=== PATIENT | male | born 1955 | race Caucasian/White ===

== ENCOUNTER 2020-10-23 18:45 | Inpatient (IN) | payer BC, SELFPAY ==
[2020-10-23 20:41] VITALS: BMI 39.0
[2020-10-23 20:47] VITALS: BP 127/73; PULSE 98; RESP 18; TEMP 37.2; O2SAT 94
[2020-10-24] VITALS (21 sets, daily range): BP systolic 127–169; BP diastolic 76–100; PULSE 76–104; RESP 13–20; TEMP 36.2–37.2; O2SAT 94–100
--- NOTE | 2020-10-24 | XR_ITS ---
WS: [id number] C-ARM RADIOGRAPHS RIGHT HIP; 4 IMAGES HISTORY: OR PICS COMPARISON: 10/19/2020 Nail and plate fixation of the RIGHT intertrochanteric fracture. Fracture in good position alignment. XR/XR hip RT 2-3V wo/w pel* [id number] IMPRESSION: Status post ORIF intertrochanteric hip fracture in good alignment.
--- NOTE | 2020-10-24 | SCC_ITS ---
Procedure Done: ORIF Right hip IT fracture 66 seconds of fluoroscopic guidance, for a cumulative dose of 22.95 mGy, was provided to Dr. Rasmussen by the radiology department. C-arm images of the RIGHT hip were saved for the patient's permanent record. [facility]
--- NOTE | 2020-10-24 00:18 | P.HP_ITS ---
Providers/Chief Complaint Admitting Physician: Vishnu Rasmussen DO Chief Complaint: Hip Fracture History of Present Illness Griffin Angel is a 65 year old male with history of moderate aortic stenosis, diabetes, GERD presented to [facility] on Tuesday after falling on ice while he was getting in his tractor. He was admitted at [place] for management of right intertrochanteric hip fracture. Because of unsuitable surgical suite he could not get surgical intervention hence got transferred to our facility. Dr. Rasmussen has accepted the transfer. He was evaluated by cardiology and was cleared for the surgery, his echo revealed preserved ejection fraction, has moderate aortic stenosis, asymptomatic. Normal CBC, BMP, unremarkable EKG, hip x-ray reveals right intertrochanteric hip fracture, unremarkable chest x-ray, Covid antigen negative At the time of my evaluation patient was lying comfortably in his bed, normal hemodynamics he was saturating well on room air, he was complaining of right- sided hip pain for which he was given Dilaudid Denying chest pain, orthopnea, shortness of breath, nausea, vomiting or diarrhea. Review of Systems Const: Denies: fever(s) or chills Eyes: Denies: change in vision ENMT: Denies: throat pain Card: Denies: chest pain Resp: Denies: dyspnea GI: Denies: abdominal pain : Denies: flank pain Musc: Reports: extremity pain, joint pain and limited range of motion Skin/Breast: Denies: lesions Neuro: Denies: headache(s) Psych: Denies: anxiety Endo: Denies: polyuria Eliu/Lymph: Denies: easy bruising All/Imm: Denies: urticaria Medications/Allergies Home Medications Medication Instructions Recorded Confirmed Last Taken Type dulaglutide [Trulicity] See Rx Instructions .ROUTE .COMPLEX 10/23/20 10/23/20 Unknown History empagliflozin [Jardiance] 25 mg PO DAILY 10/23/20 10/23/20 Unknown History glyburide 10 mg PO BID 10/23/20 10/23/20 Unknown History lisinopril 5 mg PO DAILY 10/23/20 10/23/20 Unknown History meloxicam 15 mg PO DAILY 10/23/20 10/23/20 Unknown History metformin 500 mg PO BID 10/23/20 10/23/20 Unknown History pantoprazole 40 mg PO DAILY 10/23/20 10/23/20 Unknown History Allergies Allergy/AdvReac Type Severity Reaction Status Date / Time No Known Allergies Allergy Verified 10/23/20 22:48 PFSH Acute PFSH: Medical History (Updated 10/24/20 @ 01:46 by Tay Leal MD) Diabetes Moderate aortic stenosis Right femoral fracture Surgical History (Updated 10/24/20 @ 01:46 by Tay Leal MD) History of open reduction and internal fixation (ORIF) procedure Family History (Updated 10/24/20 @ 01:47 by Tay Leal MD) Denies family history of CAD (coronary artery disease) Lung disease Cancer Hypertension Social History (Updated 10/24/20 @ 01:47 by Tay Leal MD) Smoking and tobacco status: never smoked Alcohol intake: never Substance/Drug Use: never Household members: spouse Housing: House Vitals/I&O/Wt Last Vital Signs Temp 98.9 F 10/23/20 20:47 Pulse 98 10/23/20 20:47 Resp 18 10/23/20 20:47 BP 127/73 10/23/20 20:47 Pulse Ox 94 10/23/20 20:47 10/23/20 10/23/20 10/24/20 14:59 22:59 06:59 Output Total 750 / 750 Balance -750 / -750 Weight last 48 hrs Weight 116.573 kg Physical Exam Narrative: EXAM NARRATIVE: Middle-age male currently laying comfortably in his bed normal hemodynamics, appears stated age S1, S2 aortic stenosis murmur grade 2/6 right second intercostal space radiating towards his neck Abdomen distended central obesity nontender Bilateral breath sounds without adventitious rhonchi or crackles no acute respite distress Awake alert oriented x3 GCS 15 No acute signs of gangrene ischemia or ulcer of lower extremities No neurological deficit Limited range of motion of right leg pain appropriate mood and affect A&P Assessment and plan (1) Closed right hip fracture: Right intertrochanteric hip fracture after sustaining a fall on ice She of moderate aortic stenosis RCRI class I risk, has been evaluated by cardiology at [place] who cleared him for the surgery, patient is asymptomatic for his moderate aortic stenosis, Dr. Rasmussen consulted who accepted this patient I will continue him on maintenance fluid along low-dose sliding scale N.p.o. 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 DVT prophylaxis: SCDs Full code Attestations Medical Necessity Statement*: Anticipating stay in the hospital cross more than 2 midnights currently need surgical intervention for right hip fracture Time Spent in Patient Care: (>than 50% of time spent in counselling and/or direct pt care on unit) . 35 minutes Coding Level of Care Code Acute Ginseng Farmer for Nereydag Fwd Diagnoses Closed right hip fracture S72.001A
[2020-10-24] MEDS: dextrose 5%-sod chloride 0.45% 1,000 ML 30 ML IV (00:55)
[2020-10-24] MEDS: HYDROmorphone 1 mg/mL INJ 1 mL 0.4 MG IVP (01:00)
[2020-10-24 06:10] LABS: Basophils # 0.1 10^3/uL (0.0-0.1); Basophils % 0.5 %; Eosinophils # 0.3 10^3/uL (0.0-0.8); Eosinophils % 3.2 %; Hemoglobin 13.3 g/dL (11.7-16.6); Lymphocytes % 30.3 %; Mean Corpuscular HGB Conc 30.9 g/dL (30.0-36.0); Mean Corpuscular Hemoglobin 24.6 pg (28.0-34.0); Mean Corpuscular Volume 79.5 fL (80-94); Monocytes # 1.2 10^3/uL (0.2-0.9); Monocytes % 11.9 %; Neutrophils # 5.26 10^3/uL (1.8-7.7); Neutrophils % 53.7 %; Nucleated Red Blood Cells % 0 %; Platelet Count 172 10^3/cmm (130-400); Red Blood Count 5.41 10^6/uL (4.1-5.3); Red Cell Distribution Width 15.5 % (12.1-15.1); White Blood Count 9.8 10^3/uL (4.0-10.0)
[2020-10-24 06:41] LABS: Anion Gap 11.1 (5-19); Blood Urea Nitrogen 18 mg/dL (8-23); Calcium 9.1 mg/dL (8.5-10.5); Carbon Dioxide 27 mmol/L (22-29); Chloride 103 mmol/L (98-107); Glomerular Filtration Rate 97.3 mL/min (90-130); Glucose 145 mg/dL (65-115); Osmolality Calculated 288 mOsm/kg (285-295); Potassium 4.1 mmol/L (3.5-5.1); Sodium 137 mmol/L (136-145)
--- NOTE | 2020-10-24 06:45 | PC.NURSE ---
Patient to surgery at this time.
--- NOTE | 2020-10-24 07:00 | ECG_ITS ---
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 Measurements Intervals [place] Rate: 88 P: -9 MO: 131 QRS: 42 QRSD: 101 T: 9 QT: 358 QTc: 434 Interpretive Statements SINUS RHYTHM NONSPECIFIC T-WAVE ABNORMALITY No previous ECG available for comparison Electronically Signed On 10-24-2020 16:14:25 MAMMA LOGIST by Demetris Herman M.D. [id number]
--- NOTE | 2020-10-24 07:04 | P.CONIM_ITS ---
Providers/Reason For Consult Consulting Physican/Specialty*: orthopedic Reason for Consult*: hip fracture Attending Physician: Vishnu Rasmussen DO History of Present Illness History of Present Illness Griffin Angel is a 65 year old male with history of moderate aortic stenosis, diabetes, GERD presented to [facility] on Tuesday after falling on ice while he was getting in his tractor. He was admitted at [place] for management of right intertrochanteric hip fracture. Because of unsuitable surgical suite he could not get surgical intervention hence got transferred to our facility. Dr. Rasmussen has accepted the transfer. He was evaluated by cardiology and was cleared for the surgery, his echo revealed preserved ejection fraction, has moderate aortic stenosis, asymptomatic. Normal CBC, BMP, unremarkable EKG, hip x-ray reveals right intertrochanteric hip fracture, unremarkable chest x-ray, Covid antigen negative Review of Systems Const: Denies: fever(s) or chills Eyes: Denies: change in vision ENMT: Denies: throat pain Card: Denies: chest pain Resp: Denies: dyspnea GI: Denies: abdominal pain : Denies: flank pain Musc: Reports: extremity pain, joint pain and limited range of motion Skin/Breast: Denies: lesions Neuro: Denies: headache(s) Psych: Denies: anxiety Endo: Denies: polyuria Eliu/Lymph: Denies: easy bruising All/Imm: Denies: urticaria Meds/Allergies Home Medications and Allergies Home Medications Medication Instructions Recorded Confirmed Last Taken Type dulaglutide [Trulicity] See Rx Instructions .ROUTE .COMPLEX 10/23/20 10/23/20 Unknown History empagliflozin [Jardiance] 25 mg PO DAILY 10/23/20 10/23/20 Unknown History glyburide 10 mg PO BID 10/23/20 10/23/20 Unknown History lisinopril 5 mg PO DAILY 10/23/20 10/23/20 Unknown History meloxicam 15 mg PO DAILY 10/23/20 10/23/20 Unknown History metformin 500 mg PO BID 10/23/20 10/23/20 Unknown History pantoprazole 40 mg PO DAILY 10/23/20 10/23/20 Unknown History Allergies Allergy/AdvReac Type Severity Reaction Status Date / Time No Known Allergies Allergy Verified 10/23/20 22:48 Current Medications Current Medications Generic Name Dose Route Start Last Admin Trade Name Freq PRN Reason Stop Dose Admin Hydromorphone HCl 0.4 mg 10/24/20 00:18 10/24/20 01:00 Hydromorphone 1 Mg/Ml Inj 1 Ml IVP 0.4 mg Q4H PRN Administration pain Dextrose/Sodium Chloride 1,000 mls @ 30 mls/hr 10/24/20 00:30 10/24/20 00:55 Dextrose 5%-Sod Chloride 0.45% IV 30 mls/hr .Q24H INDU Administration PFSH Acute PFSH: Medical History (Updated 10/24/20 @ 01:46 by Tay Leal MD) Diabetes Moderate aortic stenosis Right femoral fracture Surgical History (Updated 10/24/20 @ 01:46 by Tay Leal MD) History of open reduction and internal fixation (ORIF) procedure Family History (Updated 10/24/20 @ 01:47 by Tay Leal MD) Denies family history of CAD (coronary artery disease) Lung disease Cancer Hypertension Social History (Updated 10/24/20 @ 01:47 by Tay Leal MD) Smoking and tobacco status: never smoked Alcohol intake: never Substance/Drug Use: never Household members: spouse Housing: House Vitals/I&O/Wt Last Vital Signs Temp 97.2 F L 10/24/20 06:49 Pulse 90 10/24/20 06:49 Resp 18 10/24/20 06:49 BP 127/76 10/24/20 06:49 Pulse Ox 96 10/24/20 06:49 10/23/20 10/24/20 10/24/20 22:59 06:59 14:59 Output Total 750 / 750 650 / 1400 Balance -750 / -750 -650 / -1400 Weight last 48 hrs Weight 257 lb Physical Exam Narrative: EXAM NARRATIVE: CONSTITUTIONAL: The patient is a normal appearing [] in no apparent distress. GENERAL: Patient in no acute distress. CARDIAC: Regular rate and rhythm. CHEST: Normal inspiratory effort, normal respiratory rate. ABDOMEN: Soft and nontender. SKIN: Clear, warm and intact. NEURO?PSYCH: The patient is alert and oriented to person, place and time. Sensorv /SILT Motor StrengthShoulder abduction C5 5/5Wrist extension C6 5/5Elbow extension C7 5/5Hand Metal Room Dental Technician C8 5/5Finger abduction T15/5 Radial/ Ulnar/ Median n intact LowerSensory (SILT)Motor StrengthHin flexion L2/3Ant/inner thigh 5/5Hip adduction L2/3 5/5Knee extension L4 Lat thigh, 5/5Toe dorsiflexion L5 5/5Ankle dorsiflexion L5/ I52Adthqij flexion S1 5/5 DTRBleeps 2+Triceps 2+Brachioradialis 2+Patellar 2+Achilles 2+ MUSCULOSKELETAL: [] UPPEREXTREMITIES: The patient had full active ROM in fingers, wrist, elbow, and shoulder. The patient demonstrated ability to fully flex/extend/abduct/a dduct fingers, make ok sign, cross 2nd/3rd digits, extend 1st digit fully.. Radial pulse 2+, CR<2 seconds. LOWER EXTREMITIES: Pt has full, active ROM of toes, ankle, knee, and hip. Dorsalis pedis/posterior tibialis pulses 2+, CR<2 seconds. SPINE: Skin warm, dry, intact A&P Additional A&P Information right hip fracture IT ORIF R hip Coding Level of Care Code Acute Business Transformation Manager for Wale Shankar
--- NOTE | 2020-10-24 07:06 | W.PM.OPSUD ---
Surgery/Procedure H&P Update DATE OF PROCEDURE: October 24, 2020 DATE H&P PERFORMED: 10/24/20 H&P UPDATE INFORMATION: I have reviewed H&P completed within last 30 days PLANNED PROCEDURE: Operation Date: 10/24/20 08:00 Proposed Procedures p ORIF Femur(Right) - Vishnu Rasmussen DO
--- NOTE | 2020-10-24 07:24 | ANES.PREANE2 ---
Pre-Anesthetic Assessment Pre-Anesthetic Assessment: Height/Weight: Height 1.73 m Weight 116.573 kg Temp Pulse Resp BP Pulse Ox 97.2 F L 90 18 127/76 96 10/24/20 06:49 10/24/20 06:49 10/24/20 06:49 10/24/20 06:49 10/24/20 06:49 Preop Diagnosis: right IT fx Proposed Procedure: Operation Date: 10/24/20 08:00 Proposed Procedures p ORIF Femur(Right) - Vishnu Rasmussen DO Familial anesthetic complications: None Was Beta Carlos taken within 24 hours: N/A Last intake: NPO > 8 hrs Social: Social History: No alcohol and No tobacco Exam: Pre-Anes Outpt Exam: alert, oriented x 3, clear to auscultation bilaterally and regular rate & rhythm Airway: Cervical ROM: WNL MP: 3 Dentition: Chipped and Other ( I have bad teeth ) CV/HEM: CV/HEM: HTN Comments: mod Aortic Stenosis, seen and cleared by cardiology at [place] for the surgery- still very active, no symptoms GI: GI: GERD Metabolic: Metabolic: DM Anesthetic Plan: ASA status: 3 Anesthesia: General Risk of > 500 ml blood loss (7ml/kg in children): No Meds/Allergies Current Medications: Current Medications Generic Name Dose Route Start Last Admin Trade Name Freq PRN Reason Stop Dose Admin Hydromorphone HCl 0.4 mg 10/24/20 00:18 10/24/20 01:00 Hydromorphone 1 Mg/Ml Inj 1 Ml IVP 0.4 mg Q4H PRN Administration pain Dextrose/Sodium Ch loride 1,000 mls @ 30 ml s/hr 10/24/20 00:30 10/24/20 00:55 Dextrose 5%-Sod Chloride 0.45% IV 30 mls/hr .Q24H INDU Administration PFSH Anesthesia PFSH: Medical History (Updated 10/24/20 @ 01:46 by Tay Leal MD) Diabetes Moderate aortic stenosis Right femoral fracture Surgical History (Updated 10/24/20 @ 01:46 by Tay Leal MD) History of open reduction and internal fixation (ORIF) procedure Family History (Updated 10/24/20 @ 01:47 by Tay Leal MD) Denies family history of CAD (coronary artery disease) Lung disease Cancer Hypertension Social History (Updated 10/24/20 @ 01:47 by Tay Leal MD) Smoking and tobacco status: never smoked Alcohol intake: never Substance/Drug Use: never Household members: spouse Housing: House Data Anesthesia CBC & Chem 7: 10/24/20 05:55 10/24/20 05:55 Other Labs: Laboratory Results - last 48 hr 10/24/20 10/24/20 05:55 05:55 WBC 9.8 RBC 5.41 H Hgb 13.3 Hct 43.0 MCV 79.5 L MCH 24.6 L MCHC 30.9 RDW 15.5 H Plt Count 172 MPV 11.0 H Neut % (Auto) 53.7 Lymph % (Auto) 30.3 Hendricks % (Auto) 11.9 Eos % (Auto) 3.2 Baso % (Auto) 0.5 Neut # (Auto) 5.26 Lymph # (Auto) 3.0 Hendricks # (Auto) 1.2 H Eos # (Auto) 0.3 Baso # (Auto) 0.1 Nucleated RBC % (auto) 0 Nucleated RBCs # 0.0 Sodium 137 Potassium 4.1 Chloride 103 Carbon Dioxide 27 Anion Gap 11.1 BUN 18 Creatinine 0.8 GFR Calculation 97.3 Glucose 145 H Calculated Osmolality 288 Calcium 9.1 Cardiac Studies: No Data to Display
[2020-10-24] MEDS: sodium chloride 0.9% 1,000 ML 30 ML IV (07:51)
--- NOTE | 2020-10-24 10:00 | PM.OP ---
Operative Report Date of procedure: October 24, 2020 Pre-op Diagnosis: right IT fx Post-op diagnosis: same Procedure Done: ORIF Right hip IT fracture Surgeon: Vishnu Rasmussen Anesthesia: General Estimated blood loss (mL): 50 Condition: stable Disposition: PACU Procedure: ORIF Right Hip Fracture Brought to the operative suite after undergoing anesthesia was placed on the fracture table traction was applied and internal rotation. All area of impingement were well padded patient was then prepped and draped normal sterile fashion. Skin incision was made over the fracture. IT band split vastus lateralis is elevated up anteriorly. Retractors were placed. A guidewire was placed through the jig. Once the wire was placed in the center center position in the femoral head attention was then brought to drilling the leg screw hole was drilled. Then the lag screw was inserted with a 3 hole plate. Plate was then tamped into position. And then 3 screws were placed distal to the lag screw through the plate avoiding the nail that was already in the femur from a previous surgery. AP lateral fluoroscopy ensured the fracture and hardware in appropriate positions. Wounds were irrigated and closed with Vicryl and karlo. Sterile dressings were applied and patient was transferred to the PACU in stable condition.
[2020-10-24] MEDS: fentaNYL 50 mcg/mL INJ 2mL IVP (10:18)
--- NOTE | 2020-10-24 10:26 | SUR.PHASEI ---
PT TO PACU SLEEPY WITH GOOD RESP EFFORT, PT MOANS AND RESTLESS, SAYS (UH HUH) TO PAIN QUESTIONS, , FIRST ICE TO RT HIP DRESSING D/I DISTAL FOOT PINK WARM PULSE MARDED RT SCD PLACED AND WORKING 1018 SEE PAIN MED GIVEN FOR PAIN AFTER PT REPOSITIONED SELF TO LT SIDE PILLOWS BETWEEN KNEES FOR COMFORT.
[2020-10-24] MEDS: HYDROcodone-acetaminophen 5-325 mg Tablet PO ×2 (11:46→22:08)
[2020-10-24] MEDS: lisinopril 5 mg Tablet PO (11:46)
--- NOTE | 2020-10-24 12:11 | PM.PN ---
Subjective Subjective: Interval history: Griffin reports he is in some discomfort after the hip surgery. Medications: Reviewed: Yes Vitals/I&O/Wt Last Vital Signs Temp 98.7 F 10/24/20 11:49 Pulse 91 10/24/20 11:49 Resp 18 10/24/20 11:49 BP 163/96 10/24/20 11:49 Pulse Ox 94 10/24/20 11:49 10/23/20 10/24/20 10/24/20 22:59 06:59 14:59 Intake Total 50 / 50 Output Total 750 / 750 650 / 1400 250 / 250 Balance -750 / -750 -650 / -1400 -200 / -200 Weight last 48 hrs Weight 116.573 kg Physical Exam Narrative: EXAM NARRATIVE: General exam is no apparent distress Cardiovascular regular rate and rhythm without murmur Lungs clear Abdomen is soft, positive bowel sounds Extremities no cyanosis clubbing or edema, dressing noted right hip Data : 10/24/20 05:55 10/24/20 05:55 A&P Assessment and plan (1) Closed right hip fracture: Directly postoperative, doing well Pain control Status: Acute Additional A&P Information Moderate aortic stenosis, asymptomatic. Can follow-up with his primary and cardiology on discharge Type 2 diabetes. Sliding scale insulin Hypertension, continue home medicines History of GERD, continue Protonix Lovenox for DVT prophylaxis Full code Attestations Medical Necessity Statement*: Needs continued hospitalization following hip fracture repair for close monitoring. Coding Level of Care Code Acute Paint Factory Worker for Nereydag Fwd Diagnoses Closed right hip fracture S72.001A
--- NOTE | 2020-10-24 12:52 | ANE.PACU2 ---
Inpatient post-anesthesia follow up: Airway intact: Yes Vital signs: Temperature 98.4 F Pulse Rate 89 Respiratory Rate 18 Blood Pressure 168/98 Pulse Oximetry 98 Oxygen Delivery Me thod Nasal Cannula Oxygen Flow Rate 2 Fraction of Inspir ed Oxygen Hydration adequate: Yes Nausea and vomiting: No Pain level: 1 Mental status: Baseline
--- NOTE | 2020-10-24 13:53 | PC.CHAP ---
Pastoral Care Encounter/Spiritual Assessment Type of Contact [] Declined physician assistant surgery visit [] Patient/Family/Request visit [] Outpatient visit [] Follow-up visit [] Physician referral [] Code/Alert [] Routine visit [] Staff referral [] Actively dying [] Patient sleeping [] Family support [] [] Out of room [] Palliative care [] [] Receiving care in room [] Pre-surgical visit [] Trauma [] Long length of stay [] ICU visit [] Other: Relational/Emotional Strength [] Patient feels connected with others/family/visitors/staff [] Distress [] Loneliness/isolation [] Abandonment Spirituality of Patient [] Person of Yuridia [] Attends Confucianism of their Yuridia [] Believes in Prayer [] Reads Bible or Congregational materials [] There are Spiritual issues to be addressed Packager Hand Interventions [] Prayer [] Active listening [] Non-anxious presence [] Spiritual/emotional support [] Crisis/trauma care [] Spiritual counseling [] Bereavement support [] Provided bereavement packet [] Provided Bible/devotional materials [] Provided toy/stuffed animal, coloring book to patient or family member [] Provided Communion [] Anointing/[place] [] Salvation [] Completed spiritual assessment [] Other: Impact on Illness or Injury [] Angry [] Fearful [] Anxious [] Often cries [] Exhaustion [] Unable to work [] Unable to attend christian [] Unable to walk/stand [] Unable to read [] Unable to drive [] Unable to eat/drink [] Unable to sleep [] Unable to be with family [] Patient intubated [] Other: Summary patient still sedated after surgery. Follow up needed. Time spent with patient
--- NOTE | 2020-10-24 16:48 | PC.NURSE ---
SHIFT SUMMARY PATIENT HAS BEEN RESTING WELL SINCE ARRIVING TO THE FLOOR FROM THE OR. PAIN WELL CONTROLLED. SURGICAL INCISION DRESSING C/D/I. BP SLIGHTLY ELEVATED. LISINOPRIL GIVEN. NO COMPLAINTS AT THIS TIME.
[2020-10-24] MEDS: ceFAZolin 3,000 MG in sodium chloride 0.9% (100 ml) 100 ML 200 MG IV (17:48)
[2020-10-24] MEDS: metformin XR 500 MG Tablet PO (19:58)
[2020-10-24] MEDS: enoxaparin 40 mg/0.4 mL Syringe SUBCUT (22:05)
[2020-10-25] VITALS (7 sets, daily range): BP systolic 99–168; BP diastolic 58–87; PULSE 86–106; RESP 17–18; TEMP 36.7–37.3; O2SAT 91–99
[2020-10-25] MEDS: ceFAZolin 3,000 MG in sodium chloride 0.9% (100 ml) 100 ML 200 MG IV (00:28)
[2020-10-25] MEDS: dextrose 5%-sod chloride 0.45% 1,000 ML 30 ML IV (00:30)
[2020-10-25] MEDS: HYDROcodone-acetaminophen 5-325 mg Tablet PO ×3 (04:58→17:57)
--- NOTE | 2020-10-25 05:39 | PC.NURSE ---
Shift Summary Patient rested comfortably. He c/o pain at a 10 every time awake. Pain medication's administered as ordered. Ice in place.
[2020-10-25 06:19] LABS: Basophils # 0.1 10^3/uL (0.0-0.1); Basophils % 0.4 %; Eosinophils # 0.2 10^3/uL (0.0-0.8); Eosinophils % 1.4 %; Hemoglobin 12.5 g/dL (11.7-16.6); Lymphocytes # 2.8 10^3/uL (0.8-4.8); Lymphocytes % 21.2 %; Mean Corpuscular HGB Conc 31.3 g/dL (30.0-36.0); Mean Corpuscular Hemoglobin 24.9 pg (28.0-34.0); Mean Corpuscular Volume 79.5 fL (80-94); Mean Platelet Volume 11.5 fL (7.4-10.4); Monocytes # 1.6 10^3/uL (0.2-0.9); Monocytes % 12.4 %; Neutrophils # 8.46 10^3/uL (1.8-7.7); Neutrophils % 64.1 %; Nucleated Red Blood Cells % 0 %; Platelet Count 186 10^3/cmm (130-400); Red Blood Count 5.03 10^6/uL (4.1-5.3); Red Cell Distribution Width 15.4 % (12.1-15.1); White Blood Count 13.2 10^3/uL (4.0-10.0)
[2020-10-25 07:14] LABS: Anion Gap 14.2 (5-19); Blood Urea Nitrogen 18 mg/dL (8-23); Calcium 8.3 mg/dL (8.5-10.5); Carbon Dioxide 25 mmol/L (22-29); Chloride 101 mmol/L (98-107); Glucose 149 mg/dL (65-115); Osmolality Calculated 287 mOsm/kg (285-295); Potassium 4.2 mmol/L (3.5-5.1); Sodium 136 mmol/L (136-145)
--- NOTE | 2020-10-25 08:33 | P.PN_ITS ---
Subjective Subjective: Interval history: Griffin reports she is still in quite a bit of pain. He has not yet gotten up with physical therapy. No other concerns. Medications: Reviewed: Yes Vitals/I&O/Wt Last Vital Signs Temp 98.1 F 10/25/20 08:00 Pulse 99 10/25/20 08:06 Resp 17 10/25/20 08:06 BP 145/87 10/25/20 08:00 Pulse Ox 91 10/25/20 08:06 10/24/20 10/25/20 10/25/20 22:59 06:59 14:59 Intake Total 100 / 150 1807.5 / 1957.5 Output Total 1025 / 1275 425 / 1700 Balance -925 / -1125 1382.5 / 257.5 Weight last 48 hrs Weight 116.573 kg Physical Exam Narrative: EXAM NARRATIVE: General exam is no apparent distress Cardiovascular regular rate and rhythm without murmur Lungs clear Abdomen is soft, positive bowel sounds Extremities no cyanosis clubbing or edema, dressing noted right hip, clean and dry Data : 10/25/20 04:57 10/25/20 04:57 A&P Assessment and plan (1) Closed right hip fracture: Postoperative day #1 Pain control Up with therapy today to try to determine discharge needs Status: Acute Additional A&P Information Moderate aortic stenosis, asymptomatic. Can follow-up with his primary and ca rdiology on discharge Type 2 diabetes. Sliding scale insulin Hypertension, continue home medicines History of GERD, continue Protonix Lovenox for DVT prophylaxis Full code Attestations Medical Necessity Statement*: Needs continued hospitalization for close monitoring following hip fracture repair Coding Level of Care Code Acute Motor Vehicle License Clerk for Nereydag Fwselam Diagnoses Closed right hip fracture S72.001A
[2020-10-25] MEDS: lisinopril 5 mg Tablet PO (08:54)
[2020-10-25] MEDS: metformin XR 500 MG Tablet PO ×2 (08:54→17:57)
[2020-10-25] MEDS: pantoprazole DR 40 mg Tablet PO (08:54)
[2020-10-25] MEDS: meloxicam 7.5 mg tablet 15 MG PO (08:54)
--- NOTE | 2020-10-25 09:54 | P.PN_ITS ---
Subjective Subjective: Interval history: Patient was getting up with therapy when I saw him. Patient is in some pain but controlled. Vitals/I&O/Wt Last Vital Signs Temp 98.1 F 10/25/20 08:00 Pulse 99 10/25/20 08:06 Resp 17 10/25/20 08:06 BP 145/87 10/25/20 08:00 Pulse Ox 91 10/25/20 08:06 10/24/20 10/25/20 10/25/20 22:59 06:59 14:59 Intake Total 100 / 150 1807.5 / 1957.5 Output Total 1025 / 1275 425 / 1700 500 / 500 Balance -925 / -1125 1382.5 / 257.5 -500 / -500 Weight last 48 hrs Weight 257 lb Physical Exam Narrative: EXAM NARRATIVE: Wound is clean dry and intact. 5-5 strength. Data : 10/25/20 04:57 10/25/20 04:57 A&P Additional A&P Information Postop day #1 ORIF right intertrochanteric hip fracture. Okay to DC from an orthopedic standpoint. Weight-bear as tolerated. DC on DVT prophylaxis likely Lovenox. Or at least an aspirin a day. Dressing changes as needed. Follow-up in orthopedic clinic in 2 weeks. Attestations Medical Necessity Statement*: Okay to discharge from an orthopedic standpoint. Coding Level of Care Code Acute Cosmetics Demonstrator for Wale Shankar
--- NOTE | 2020-10-25 09:56 | PM.DCS ---
Discharge Providers Date of Admission: 10/23/20 18:45 Date of Discharge: October 25, 2020 Attending Provider at Admission: Vishnu Rasmussen DO Attending Provider at Discharge: Dru Ba MD Diagnoses at Discharge Discharge Diagnosis (1) Closed right hip fracture: Reason for Visit Reason for Visit: Hip Fracture Discharge Data Data Completed and Pending: Completed Studies During Hospitalization Category Date Time Status XR hip RT 2-3V wo /w pel* [id number] Rout ine Exams 10/24/20 Completed Pending at discharge Category Date Time Status C-arm Fluoroscopy [id number] Routine Exams 10/24/20 07:06 Taken Basic Metabolic P dominique AM LABS Lab 10/26/20 04:00 Ordered Complete Blood Co unt w/Auto AM LABS Lab 10/26/20 04:00 Ordered Labs from last 24 hours 10/25/20 10/25/20 04:57 04:57 WBC 13.2 H RBC 5.03 Hgb 12.5 Hct 40.0 L MCV 79.5 L MCH 24.9 L MCHC 31.3 RDW 15.4 H Plt Count 186 MPV 11.5 H Neut % (Auto) 64.1 Lymph % (Auto) 21.2 Rains % (Auto) 12.4 Eos % (Auto) 1.4 Baso % (Auto) 0.4 Neut # (Auto) 8.46 H Lymph # (Auto) 2.8 Rains # (Auto) 1.6 H Eos # (Auto) 0.2 Baso # (Auto) 0.1 Nucleated RBC % (a uto) 0 Nucleated RBCs # 0.0 Sodium 136 Potassium 4.2 Chloride 101 Carbon Dioxide 25 Anion Gap 14.2 BUN 18 Creatinine 0.9 GFR Calculation 85.0 L Glucose 149 H Calculated Osmolal ity 287 Calcium 8.3 L Vitals: Last Vital Signs Temp 98.1 F 10/25/20 08:00 Pulse 99 10/25/20 08:06 Resp 17 10/25/20 08:06 BP 145/87 10/25/20 08:00 Pulse Ox 91 10/25/20 08:06 Discharge Plan Discharge Patient Disposition: Home Health Service Condition: Stable Prescriptions: New hydrocodone-acetaminophen 5-325 mg tablet 1 - 2 tab PO .Q4-6H Qty: 40 RF: 0 aspirin 81 mg tablet,delayed release (DR/EC) 81 mg PO BID Qty: 60 RF: 0 Continued Jardiance 25 mg Tablet 25 mg PO DAILY RF: 0 metformin 500 mg Tablet Extended Release 24 Hr 500 mg PO BID RF: 0 lisinopril 5 mg Tablet 5 mg PO DAILY RF: 0 pantoprazole 40 mg Tablet,Delayed Release (Dr/Ec) 40 mg PO DAILY RF: 0 Trulicity 1.5 mg/0.5 mL Pen Injector See Rx Instructions .ROUTE .COMPLEX RF: 0 glyburide 5 mg Tablet 10 mg PO BID RF: 0 meloxicam 15 mg Tablet 15 mg PO DAILY RF: 0 Discharge Orders: Discharge Order (Routine); Ordered 10/26/20 Ordered By: Santosh Roman Other Ambulatory Orders: Complete Blood Count w/Auto (Routine) Timeframe: 2 Weeks Location: Determined by Patient Ordered By: Santosh Roman Comprehensive Metabolic Panel (Routine) Timeframe: 2 Weeks Facility: [facility] - Location: Lab - Main Lab Ordered By: Santosh Roman Discharge Diet: Diabetic Discharge Activity: Increase activity as tolerated Patient Instructions: Anemia, Open Reduction and Internal Fixation of a Hip Fracture (DC) Activity Restrictions/Additional Instructions: You are being discharged from the hospital today during which time you have been under the care of Dr. Rasmussen. You had a right intertrochanteric hip fracture. You were treated for this injury with open reduction internal fixation. You may resume you normal diet (including any special diets as directed by your primary doctor) as well as your home medications. You should follow up with you primary doctor if you have any questions regarding medication you took prior to your stay in the hospital. You may take your pain medication as prescribed. After the first few days, take your pain medication as needed. Do not drive or drink alcohol while taking your pain medication. Your injury may increase your risk of developing a blood clot,or DVT, in your arm or leg. This could potentially dislodge and travel to your lungs and become a life threatening condition called apulmonary embolus,or PE. You have been prescribed Lovenox or aspirin to be taken to prevent this. Frequent movement of the legs will also help prevent this from occurring. If you develop any new or worsening cough, chestpain, bloody sputum or shortness of breath, call 911 or go to the EmergencyRoom. Always keep your surgical incision/dressing clean and dry. If you experience increasing pain at your incision site, redness, swelling, increasing discharge, foul odors, or fevers (greater than 100.4), night sweats or chills you should call the office at the above number. If you feel this is an emergency you should be evaluated in the Emergency Department of a nearby hospital. Orthopedic Patient Instructions Summary: Weight Bearing: Weight-bear as tolerated right lower extremity Activity: Up with assistance. Diet: Regular. Anticoagulation: Aspirin or Lovenox Pain Medication: Take only as needed. Ice, rest and elevation will be of great benefit. Please plan to follow-up [facility] Dr Rasmussen in 2 weeks. You will need to call the clinic [phone] to schedule this visit. Thank you far allowing me to participate in your care. Do not hesitate to call the office with any questions or concerns. Discharge Attestations Time Spent in Discharge Care*: less than 30 min Quality Metrics Clinical Quality Measures During this hospital stay, did patient experience: None Coding Level of Care Code Acute Gear Tooth Grinding Machine Operator for Wale Shankar Diagnoses Closed right hip fracture S72.001A
--- NOTE | 2020-10-25 11:53 | PC.CHAP ---
Pastoral Care Encounter/Spiritual Assessment Type of Contact [] Declined framing mechanic visit [] Patient/Family/Request visit [] Outpatient visit [XX] Follow-up visit [] Physician referral [] Code/Alert [] Routine visit [] Staff referral [] Actively dying [XX] Patient sleeping [] Family support [] [] Out of room [] Palliative care [] [] Receiving care in room [] Pre-surgical visit [] Trauma [] Long length of stay [] ICU visit [] Other: Relational/Emotional Strength [] Patient feels connected with others/family/visitors/staff [] Distress [] Loneliness/isolation [] Abandonment Spirituality of Patient [] Person of Yuridia [] Attends Gnosticist of their Yuridia [] Believes in Prayer [] Reads Bible or Sikh materials [] There are Spiritual issues to be addressed Rfid Developer Interventions [] Prayer [] Active listening [] Non-anxious presence [] Spiritual/emotional support [] Crisis/trauma care [] Spiritual counseling [] Bereavement support [] Provided bereavement packet [] Provided Bible/devotional materials [] Provided toy/stuffed animal, coloring book to patient or family member [] Provided Communion [] Anointing/[place] [] Salvation [] Completed spiritual assessment [] Other: Impact on Illness or Injury [] Angry [] Fearful [] Anxious [] Often cries [] Exhaustion [] Unable to work [] Unable to attend synagogue [] Unable to walk/stand [] Unable to read [] Unable to drive [] Unable to eat/drink [] Unable to sleep [] Unable to be with family [] Patient intubated [] Other: Summary Time spent with patient
--- NOTE | 2020-10-25 16:44 | PC.NURSE ---
PATIENT RESTING IN CHAIR. OFFERED TO MOVE HIM TO BED BUT STATES HE FEELS MORE COMFORTABLE IN THE CHAIR AT THIS TIME.
[2020-10-25] MEDS: enoxaparin 40 mg/0.4 mL Syringe SUBCUT (21:24)
[2020-10-26] VITALS: BP 135/74; PULSE 95; RESP 18; TEMP 38.2; O2SAT 96
[2020-10-26 04:00] VITALS: BP 137/77; PULSE 91; RESP 18; TEMP 36.8; O2SAT 95
[2020-10-26 05:40] LABS: Basophils # 0.1 10^3/uL (0.0-0.1); Basophils % 0.7 %; Eosinophils # 0.3 10^3/uL (0.0-0.8); Eosinophils % 2.3 %; Hematocrit 37.4 % (42.0-52.0); Hemoglobin 11.3 g/dL (11.7-16.6); Lymphocytes # 2.9 10^3/uL (0.8-4.8); Lymphocytes % 25.9 %; Mean Corpuscular HGB Conc 30.2 g/dL (30.0-36.0); Mean Corpuscular Hemoglobin 24.1 pg (28.0-34.0); Mean Corpuscular Volume 79.7 fL (80-94); Mean Platelet Volume 11.7 fL (7.4-10.4); Monocytes # 1.5 10^3/uL (0.2-0.9); Monocytes % 13.6 %; Neutrophils # 6.49 10^3/uL (1.8-7.7); Neutrophils % 57.1 %; Nucleated Red Blood Cells % 0 %; Platelet Count 164 10^3/cmm (130-400); Red Blood Count 4.69 10^6/uL (4.1-5.3); Red Cell Distribution Width 15.3 % (12.1-15.1); White Blood Count 11.4 10^3/uL (4.0-10.0)
[2020-10-26 06:05] LABS: Anion Gap 12.3 (5-19); Blood Urea Nitrogen 23 mg/dL (8-23); Calcium 8.1 mg/dL (8.5-10.5); Carbon Dioxide 26 mmol/L (22-29); Chloride 101 mmol/L (98-107); Glomerular Filtration Rate 75.2 mL/min (90-130); Glucose 163 mg/dL (65-115); Osmolality Calculated 287 mOsm/kg (285-295); Potassium 4.3 mmol/L (3.5-5.1); Sodium 135 mmol/L (136-145)
[2020-10-26 06:40] LABS: Glucose Point of Care 207 mg/dL (70-110)
[2020-10-26 07:56] VITALS: BP 145/70; PULSE 92; RESP 16; TEMP 36.7; O2SAT 96
[2020-10-26] MEDS: pantoprazole DR 40 mg Tablet PO (08:20)
[2020-10-26] MEDS: meloxicam 7.5 mg tablet 15 MG PO (08:20)
[2020-10-26] MEDS: lisinopril 5 mg Tablet PO (08:20)
[2020-10-26] MEDS: metformin XR 500 MG Tablet PO (08:20)
[2020-10-26] MEDS: HYDROcodone-acetaminophen 5-325 mg Tablet PO ×2 (08:21→13:04)
--- NOTE | 2020-10-26 11:20 | PM.PN ---
Subjective Subjective: Interval history: The patient is doing well. He reports that the pain is well controlled. Denies fevers or chills. Denies nausea or vomiting. No chest pain, shortness of breath, cough, palpitations. Eager to go home. Medications: Reviewed: Yes Medication Review Details: Generic Name Dose Route Start Last Admin Trade Name Freq PRN Reason Stop Dose Admin Hydrocodone Bitart /Acetaminophen 1 - 2 tab 10/24/20 11:19 10/26/20 08:21 Hydrocodone-Acet aminophen 5-325 Mg Tablet PO 2 tab Q4H PRN Administration MODERATE PAIN Enoxaparin Sodium 40 mg 10/24/20 21:54 10/25/20 21:24 Enoxaparin 40 Mg /0.4 Ml Syringe SUBCUT 40 mg Q24H INDU Administration Hydromorphone HCl 0.4 mg 10/24/20 00:18 10/24/20 01:00 Hydromorphone 1 Mg/Ml Inj 1 Ml IVP 0.4 mg Q4H PRN Administration pain Dextrose/Sodium Ch loride 1,000 mls @ 30 ml s/hr 10/24/20 00:30 10/25/20 00:30 Dextrose 5%-Sod Chloride 0.45% IV 30 mls/hr .Q24H INDU Administration Insulin Aspart 0 unit 10/24/20 08:00 10/26/20 08:20 Insulin Aspart 1 00 Unit/1 Ml SUBCUT 4 unit WM&BEDTIME INDU Administration Protocol Lisinopril 5 mg 10/25/20 09:00 10/26/20 08:20 Lisinopril 5 Mg Tablet PO 5 mg DAILY INDU Administration Meloxicam 15 mg 10/25/20 09:00 10/26/20 08:20 Meloxicam 7.5 Mg Tablet PO 15 mg DAILY INDU Administration Metformin HCl 500 mg 10/24/20 18:00 10/26/20 08:20 Metformin Xr 500 Mg Tablet PO 500 mg BID INDU Administration Pantoprazole Sodiu m 40 mg 10/25/20 09:00 10/26/20 08:[address] 40 Mg Tablet PO 40 mg DAILY INDU Administration Vitals/I&O/Wt Last Vital Signs Temp 98.1 F 10/26/20 07:56 Pulse 92 10/26/20 07:56 Resp 16 10/26/20 07:56 BP 145/70 10/26/20 07:56 Pulse Ox 96 10/26/20 07:56 10/25/20 10/26/20 10/26/20 22:59 06:59 14:59 Intake Total 480 / 755 Output Total 100 / 600 375 / 975 Balance 380 / 155 -375 / -220 Physical Exam Narrative: EXAM NARRATIVE: Awake alert oriented. No acute distress. Mood and affect are appropriate. Skin warm and dry. Moist mucous membranes. Neck supple. No JVD Lungs clear. No respiratory distress Heart S1, S2, regular. Soft systolic murmur is present. Abdomen is soft, obese, nontender, bowel sounds are present Extremities no cyanosis or calf tenderness bilaterally Data : 10/26/20 05:21 10/26/20 05:21 A&P Assessment and plan (1) Closed right hip fracture: Postoperative day #1 Pain control Up with therapy today to try to determine discharge needs Status: Acute Additional A&P Information Moderate aortic stenosis, asymptomatic. Can follow-up with his primary and cardiology on discharge Type 2 diabetes. Sliding scale insulin Hypertension, continue home medicines History of GERD, continue Protonix Lovenox for DVT prophylaxis Full code [place] Status post ORIF after hip fracture. Doing well. Eager to go home. Does not want any placement. The pain is well controlled. Cleared by the surgeon. Expected acute blood loss anemia secondary to hip fracture and status post ORIF. Hemodynamically stable. Outpatient follow-up with the PCP and repeat CBC in about 2 weeks. VT prophylaxis. Discussed with Dr. Rasmussen. Will be discharged on [id number]. Prescription for 30-day supply is provided. Duration of the event will depend on mobility status which will be assessed at his next follow-up appointment. Diabetes and hypertension. Continue follow-up with the primary care physician. The plan of care was discussed with the patient. He verbalized understanding and agreement. Attestations Medical Necessity Statement*: Discharged home Coding Level of Care Code Acute Pharmaceutical Development Technician for Wale Shankar Diagnoses Closed right hip fracture S72.001A
[2020-10-26 11:23] LABS: Glucose Point of Care 325 mg/dL (70-110)
[2020-10-26 12:00] VITALS: BP 132/75; PULSE 84; RESP 17; TEMP 36.9; O2SAT 99
[2020-10-26 14:24] VITALS: BP 132/75; PULSE 84; RESP 17; TEMP 36.9; O2SAT 99
== END 2020-10-26 14:25 | disposition home health service (06) | DRG 481 ==
PROVIDERS: Internal Medicine; Admitting Provider Orthopaedic Surgery; Visit Provider Internal Medicine
PROC: 0QS604Z Reposition Right Upper Femur with Internal Fixation Device, Open Approach (ICD-10-PCS; principal; 2020-10-24 08:00)
DX: S72.141A Displaced intertrochanteric fracture of right femur, initial encounter for closed fracture (principal); D62 Acute posthemorrhagic anemia; I35.0 Nonrheumatic aortic (valve) stenosis; I10 Essential (primary) hypertension; E11.9 Type 2 diabetes mellitus without complications; Z79.84 Long term (current) use of oral hypoglycemic drugs; K21.9 Gastro-esophageal reflux disease without esophagitis; W00.2XXA Other fall from one level to another due to ice and snow, initial encounter; Y92.098 Other place in other non-institutional residence as the place of occurrence of the external cause
CPT/HCPCS: 36415; 36416; 73502; 76000; 80048; 82962; 85025; 93005; 96365; 96372; 97110; 97116; 97161; 97165; 97530; 97535; C1713; J0690; J1170; J1650; J1815; J2250; J2405; J2704; J3010; J3490; J7030; J7799

== ENCOUNTER → 2020-12-05 11:13 | Outpatient (BNVA) | payer BC, SELFPAY | PROVIDERS: Visit Provider Orthopaedic Surgery | DX: Z48.89 Encounter for other specified surgical aftercare (principal) | CPT/HCPCS: 73502 ==

== ENCOUNTER → 2021-01-15 10:55 | Outpatient (BNVA) | payer BC, SELFPAY | PROVIDERS: Visit Provider Orthopaedic Surgery | DX: Z48.89 Encounter for other specified surgical aftercare (principal) | CPT/HCPCS: 73502 ==